=== PATIENT | female | born 1990 | race African-American/Black ===

== ENCOUNTER 2018-11-17 22:51 | Emergency (ER) | payer SELFPAY ==
[~2018-11-17] VITALS: Ht 162.6 cm; Wt 89.0 kg
[2018-11-18] MEDS ORDERED: SODIUM CHLORIDE 0.9% 1,000 ML IV ONE (01:09)
[2018-11-18] MEDS ORDERED: ONDANSETRON HCL 4MG/2ML INJ IV STA (01:09)
[2018-11-18 01:49] LABS: BASOPHILS % 0.4 % (0.0-2.0); EOSINOPHILS % 0.2 % (0.0-5.0); HEMATOCRIT. 34.7 % (36.0-48.0); HEMOGLOBIN. 11.3 g/dL (12.0-16.0); LYMPHOCYTES % 26.6 % (20.0-50.0); MEAN CORPUSCULAR HEMOGLOBIN 28.7 pg (28.0-32.0); MEAN CORPUSCULAR VOLUME 87.8 fL (81.0-99.0); MEAN PLATELET VOLUME 7.4 fl (7.4-10.4); NEUTROPHILS % 65.8 % (40.0-76.0); PLATELET 392 x1000/uL (130-400); RED BLOOD CELL COUNT 3.95 mill/uL (4.2-5.4); RED CELL DISTRIBUTION WIDTH 13.3 % (11.6-14.6)
[2018-11-18 01:55] LABS: CHLORIDE 102 mEq/L (98-107)
[2018-11-18 02:03] LABS: HCG SCREEN NEGATIVE
[2018-11-18] MEDS ORDERED: POTASSIUM CHLORIDE 20MEQ TABLET SR PO ONE (02:15)
[2018-11-18 04:38] VITALS: BP 119/84
== END 2018-11-18 04:40 | disposition home or self-care (01) ==
LOC: ER 22:51
DX: F12.10 Cannabis abuse, uncomplicated (principal); E87.6 Hypokalemia; D64.9 Anemia, unspecified; J45.909 Unspecified asthma, uncomplicated
CPT/HCPCS: 36415; 80053; 84703; 85025; 93005; 96361; 96374; 99284; J2405; J7030; Z7610